=== PATIENT | female | born 1965 | race Hispanic/Latino ===

== ENCOUNTER → 2022-11-27 | Day surgery (SDC) | payer OTHER ==
[~2022-11-27] MED LIST: ALBUTEROL1.25 MG/3 NEB; FLONASE ALLERG9.9 ML INH; HYDROCODON-ACE1 EA12; LACTATED RINGER'S 1,000 ML ONE; LAMOTRIGINE100 MG PO; LIDOCAINE HCL 2% LOCAL INJ 5 ML SDV VIAL INJ ONE; MAGNESIUM/ALUMINUM/SIMETHICONE 30 ML UDC PO ONE; MELOXICAM7.5 MG PO; MIDAZOLAM HCL 2 MG/2 ML VIAL ONE; MULTI-VITAMIN1 EACH PO; NEURONTIN300 MG PO; ONDANSETRON ODT4 MG PO; PROPOFOL IV EMULSION 10 MG/ML 20 ML VIAL ONE; PROTONIX20 MG PO; SERTRALINE HCL100 MG PO; TIZANIDINE HCL4 M1 PO; VITAMIN D31 ML
[2022-11-27 13:40] VITALS: BP 132/86; PULSE 72; RESP 18; O2SAT 97
== END | disposition home or self-care (01) ==
LOC: OR 10:26
PROVIDERS: ATTEND Internal Medicine Gastroenterology
DX: K21.00 Gastro-esophageal reflux disease with esophagitis, without bleeding (principal); K29.50 Unspecified chronic gastritis without bleeding; K22.89 Other specified disease of esophagus; Z98.84 Bariatric surgery status; Z01.810 Encounter for preprocedural cardiovascular examination; Z79.1 Long term (current) use of non-steroidal anti-inflammatories (NSAID); Z79.899 Other long term (current) drug therapy; Z68.33 Body mass index [BMI] 33.0-33.9, adult
CPT/HCPCS: 43239; 88305; 88342; 93005; J2001; J2704; J7121; 88304; 88312; J2250